=== PATIENT | female | born 1980 | race African-American/Black ===

== ENCOUNTER → 2020-12-24 12:18 | Outpatient (CLI) | payer OTHER, SELFPAY ==
--- NOTE | ~2020-12-24 | MM_ITS ---
EXAMINATION: MM screening joanie BI w reji HISTORY: Screening TECHNIQUE: Craniocaudal and mediolateral oblique 3-D tomosynthesis images were obtained and synthetic 2-D images were generated. CAD analysis was submitted and interpreted. COMPARISON: No prior mammogram is available for comparison at this institution. BREAST PARENCHYMAL COMPOSITION: Breast composed of scattered areas of fibroglandular density FINDINGS: There is no mammographic evidence for malignancy in the right breast. There are focal asymm etries laterally in the left breast on CC view. IMPRESSION: 1. Focal asymmetry of the lateral aspect of the left breast. 2. Additional mammographic views and possible breast ultrasound are recommended. BI-RADS Category 0: Incomplete: Needs additional imaging evaluation. Reviewed, dictated and finalized at location A. IMPRESSION: 1. Focal asymmetry of the lateral aspect of the left breast. 2. Additional mammographic views and possible breast ultrasound are recommended . BI-RADS Category 0: Incomplete: Needs additional imaging evaluation.
== END ==
PROVIDERS: Visit Provider Nurse Practitioner
DX: Z12.31 Encounter for screening mammogram for malignant neoplasm of breast (principal); R92.8 Other abnormal and inconclusive findings on diagnostic imaging of breast
CPT/HCPCS: 77063; 77067

== ENCOUNTER 2021-01-28 08:41 | Outpatient (CLI) | payer OTHER, SELFPAY ==
--- NOTE | ~2021-01-28 | US_ITS ---
Please refer to diagnostic mammogram report dated 01/28/2021 for details. Reviewed, dictated and finalized at location A.
--- NOTE | ~2021-01-28 | MM_ITS ---
EXAMINATION: MM diagnostic joanie LT w reji HISTORY: Follow-up left breast asymmetry TECHNIQUE: Additional 3-D tomosynthesis images of the left breast were performed and synthetic 2-D im ages were generated. CAD analysis was submitted and interpreted. High resolution Limited left breast ultrasound was performed. COMPARISON: 12/24/2020 BREAST PARENCHYMAL COMPOSITION: Breast composed of scattered areas of fibroglandular density. FINDINGS: MAMMOGRAPHIC FINDINGS: There is a mass in the upper outer quadrant of the left breast, middle third, measuring approximately 1.6 cm greatest dimension. There are no suspicious calcifications or architectural distortion. ULTRASOUND: Limited left breast ultrasound: At 2:00, 5 cm from the nipple, there is a slightly irregular shaped h ypoechoic mass measuring 1.3 cm without significant posterior features or internal vascularity. This corresponds to the mammographic abnormality. IMPRESSION: 1. Left breast mass at 2:00, 5 cm from the nipple measuring up to 1.3 cm by ultrasound. 2. Ultrasound-guided left breast biopsy recommended. BI-RADS category 4, suspicious findings. Reviewed, dictated and finalized at location A. IMPRESSION: 1. Left breast mass at 2:00, 5 cm from the nipple measuring up to 1.3 cm by ult rasound. 2. Ultrasound-guided left breast biopsy recommended. BI-RADS category 4, suspicious findings.
== END 2021-01-28 08:42 ==
LOC: MICIMG 08:42
PROVIDERS: Visit Provider Nurse Practitioner
DX: N63.21 Unspecified lump in the left breast, upper outer quadrant (principal)
CPT/HCPCS: 76642; 77061; 77065; G0279

== ENCOUNTER 2021-02-22 09:07 | Outpatient (CLI) | payer OTHER, SELFPAY ==
--- NOTE | ~2021-02-22 | MMUS_ITS ---
EXAMINATION: US breast biopsy LT w image, MM post biopsy invasive LT DATE: 02/22/2021 10:37 (accession [id number]), 02/22/2021 10:36 (accession [id number]) INDICATION: Indeterminate mass in the upper outer quadrant of the left breast. Ultrasound-guided core biopsy is requested to evaluate for malignancy. TECHNIQUE AND FINDINGS: The risks and potential benefits of the procedure were discussed with the patient including bleeding and infection. A time out was performed. The skin of the left breast was prepared and draped in usual sterile fashion. 1% lidocaine was used for superficial anesthesia. 1% lidocaine with epinephrine was used for deep anesthesia. A vacuum-assisted biopsy gun needle was advanced through to the outer edge of the region of interest from an inferolateral approach utilizing sonographic guidance. A total of four tissue core samples we re obtained through the lesion. A tissue marker clip was then placed at the biopsy site. Hemostasis w as achieved. A sterile bandage was applied. The patient tolerated procedure well and there was no evidence of immediate complication. The patient was given verbal instructions to return to the Emergency Department in the event of severe breast pa in or rapid breast enlargement. A two view left breast mammogram was obtained to document tissue armaan er clip placement. IMPRESSION: 1. Successful ultrasound-guided vacuum-assisted biopsy of left breast mass with tissue marker placeme nt. Reviewed, dictated and finalized at location A. IMPRESSION: 1. Successful ultrasound-guided vacuum-assisted biopsy of left breast mass with tissue marker placement.
== END 2021-02-22 09:08 | disposition home or self-care (01) ==
LOC: ANHIMG 09:12
PROVIDERS: PCP Internal Medicine; Visit Provider Surgery
DX: R92.8 Other abnormal and inconclusive findings on diagnostic imaging of breast (principal)
CPT/HCPCS: 19083; 88305; 88342; A4648

== ENCOUNTER 2024-05-14 10:41 | Outpatient (CLI) | payer OTHER, SELFPAY ==
--- NOTE | ~2024-05-14 | MM_ITS ---
EXAMINATION: MM screening joanie BI w reji HISTORY: Screening mammogram TECHNIQUE: Craniocaudal and mediolateral oblique 3-D tomosynthesis images were obtained and synthetic 2-D images were generated. CAD analysis was submitted and interpreted. COMPARISON: 12/24/2020 BREAST PARENCHYMAL COMPOSITION:Dense: The breasts are heterogeneously dense, which may obscure small masses. FINDINGS: No suspicious mass, calcification, or architectural distortion are identified in either dago ast to suggest malignancy. There has been no suspicious interval change. IMPRESSION: No mammographic evidence of malignancy. Recommend routine screening mammography in one year. BI-RADS Category 1: Negative Reviewed, dictated and finalized at location . [facility]
== END 2024-05-14 10:42 | disposition home or self-care (01) ==
LOC: MICIMG 10:42
PROVIDERS: PCP Nurse Practitioner Family; Visit Provider Obstetrics & Gynecology Gynecology
DX: Z12.31 Encounter for screening mammogram for malignant neoplasm of breast (principal)
CPT/HCPCS: 77063; 77067